=== PATIENT | female | born 1990 | race Caucasian/White ===

== ENCOUNTER 2017-09-18 14:50 | Emergency (ER) | END 2017-09-18 17:52 | disposition home or self-care (01) ==

== ENCOUNTER 2019-01-10 13:39 | Emergency (ER) | payer OTHER ==
[~2019-01-10] VITALS: Ht 160 cm; Wt 104.0 kg
[~2019-01-10 13:39] MED LIST: FLUC150T PO; NITR-58 PO
[2019-01-10 13:45] VITALS: Ht 160 cm; Wt 104.0 kg
[2019-01-10] MEDS ORDERED: ACET500C5 PO (15:57)
--- NOTE | 2019-01-10 16:03 | ERD ---
ER Documentation Chief Complaint Chief Complaint vag bleed x 20 days HPI Patient is a 28-year-old female who presents to the ER for concerns of vaginal bleeding for last 20 days. Patient states she uses 1-2 pads per day. She states the bleeding increases and then decreases in volume. Patient occasionally reports blood clot passage. Patient denies any dizziness or lightheadedness. Patient denies any fevers or chills. Patient denies any chest pain or shortness of breath. Patient occasionally does have menstrual cramps. Patient denies any urinary symptoms. Patient states she did go to [facility] and she was started on oral control however she does not recall the name of it. Patient states she does not have an SOCK IRONER. Patient admits to history of irregular periods. ROS All systems reviewed and are negative except as per history of present illness. Medications Home Meds Active Scripts Acetaminophen* (Tylophen*) 500 Mg Capsule, 1 CAP PO Q6H PRN for PAIN AND OR ELEVATED TEMP, #20 CAP Prov:SANGIAT HART PA-C 01/10/19 Fluconazole* (Diflucan*) 150 Mg Tablet, 150 MG PO ONCE, #12 TAB Prov:SANGITA HART PA-C 09/18/17 Nitrofurantoin Monohyd Macrocr* (Macrobid*) 100 Mg Capsr, 100 MG PO BID for 5 Days, #10 CAP Prov:SANGITA HART PA-C 09/18/17 Allergies Allergies: Coded Allergies: No Known Allergy (Verified Allergy, Unknown, 11/15/06) PMhx/Soc History of Surgery: Yes (Keloid removal, Tonsilectomy) Hx Neurological Disorder: Yes (VERTIGO) Hx Respiratory Disorders: Yes (Asthma) Hx Alcohol Use: No Hx Substance Use: No Hx Tobacco Use: No Smoking Status: Never smoker FmHx Family History: No diabetes Physical Exam Vitals Vital Signs Date Temp Pulse Resp B/P (MAP) Pulse Ox O2 O2 Flow FiO2 Time Delivery Rate 01/10/19 98.1 78 18 122/71 98 13:45 (88) Physical Exam GENERAL: Well-developed, well-nourished female. Appears in no acute distress. HEAD: Normocephalic, atraumatic. EYES: Pupils are equally reactive bilaterally. EOMs grossly intact. No conjunctival erythema. ENT: Moist mucous membranes. No uvula deviation. No kissing tonsils. NECK: Supple. No meningismus. Normal range of motion of the neck. LUNG: Clear to auscultation bilaterally. No rhonchi, wheezing, rales or coarse breath sounds. HEART: Regular rate and rhythm. No murmurs, rubs or gallops. ABDOMEN: No scars, ecchymosis or rashes noted. Soft, and nondistended. Mildly tender to palpation in the suprapubic region. Positive bowel sounds in all four quadrants. No rebound tenderness, no guarding. (-) McBurney's point tenderness. No CVA tenderness. EXTREMITIES: Equal pulses bilaterally. No peripheral clubbing, cyanosis or edema. No unilateral leg swelling. NEUROLOGIC: Alert and oriented. Moving all four extremities without any difficulty. Normal speech. Steady gait. SKIN: Normal color. Warm and dry. No rashes or lesions. Result Diagram: 01/10/19 1433 01/10/19 1433 Results 24 hrs Laboratory Tests Test 01/10/19 14:33 01/10/19 14:36 White Blood Count 8.8 10^3/ul Red Blood Count 6.03 10^6/ul Hemoglobin 13.4 g/dl Hematocrit 44.8 % Mean Corpuscular Volume 74.3 fl Mean Corpuscular Hemoglobin 22.2 pg Mean Corpuscular Hemoglobin Concent 29.9 g/dl Red Cell Distribution Width 15.6 % Platelet Count 334 10^3/UL Mean Platelet Volume 10.5 fl Immature Granulocytes % 0.500 % Neutrophils % 63.7 % Lymphocytes % 26.5 % Monocytes % 5.2 % Eosinophils % 3.3 % Basophils % 0.8 % Nucleated Red Blood Cells % 0.0 /100WBC Immature Granulocytes # 0.040 10^3/ul Neutrophils # 5.6 10^3/ul Lymphocytes # 2.3 10^3/ul Monocytes # 0.5 10^3/ul Eosinophils # 0.3 10^3/ul Basophils # 0.1 10^3/ul Nucleated Red Blood Cells # 0.0 10^3/ul Urine Color YELLOW Urine Clarity SLIGHTLY CLOUDY Urine pH 5.0 Urine Specific [place] 1.027 Urine Ketones NEGATIVE mg/dL Urine Nitrite NEGATIVE mg/dL Urine Bilirubin NEGATIVE mg/dL Urine Urobilinogen NEGATIVE mg/dL Urine Leukocyte Esterase NEGATIVE Lesly/ul Urine Microscopic RBC 5 /HPF Urine Microscopic WBC 3 /HPF Urine Squamous Epithelial Cells FEW /HPF Urine Mucus FEW /HPF Urine Hemoglobin 3+ mg/dL Urine Glucose NEGATIVE mg/dL Urine Total Protein NEGATIVE mg/dl Sodium Level 141 mmol/L Potassium Level 3.7 mmol/L Chloride Level 105 mmol/L Carbon Dioxide Level 26 mmol/L Anion Gap 10 Blood Urea Nitrogen 16 mg/dl Creatinine 0.78 mg/dl Est Glomerular Filtrat Rate mL/min > 60 mL/min Glucose Level 110 mg/dl Calcium Level 9.2 mg/dl Total Bilirubin 0.5 mg/dl Direct Bilirubin 0.00 mg/dl Indirect Bilirubin 0.5 mg/dl Aspartate Amino Transf (AST/SGOT) 19 IU/L Alanine Aminotransferase (ALT/SGPT) 11 IU/L Alkaline Phosphatase 76 IU/L Total Protein 8.2 g/dl Albumin 4.2 g/dl Globulin 4.00 g/dl Albumin/Globulin Ratio 1.05 POC Beta HCG, Qualitative NEGATIVE Procedures/MDM ED COURSE: The patient was stable throughout ED course. I kept the patient and/or family informed of laboratory and diagnostic imaging results throughout the ED course. DIAGNOSTIC IMAGING: Read by radiologist. Patient: TACHO STANTON : 1990 Age: 28 Sex: F MR #: [id number] DOS: 01/10/19 1421 Ordering MD: SANGITA HART PA-C Location: [facility] Room/Bed: PROCEDURE: US Pelvis Non-OB CLINICAL INDICATION: Vaginal bleeding TECHNIQUE: Images were taken during real time trans pelvic interrogation. Col or-flow and Doppler interrogation of the ovaries was performed. Endovaginal scanning was not performed. COMPARISON: None FINDINGS: Uterus: appears normal in size measuring 7.7 cm in sagittal diameter and 5.6 x 4.3 cm in cross diameter. The endometrial stripe measures 3.8 mm. Ovaries: The right ovary measures 3.0 x 2.0 x 1.6 cm and appears unremarkable. The left ovary measures 2.4 x 2.0 x 1.7 cm and appears unremarkable. Vascular flow is demonstrated in each ovary on Doppler. Adnexa: No adnexal mass is identified. Free intraperitoneal fluid: None visualized. IMPRESSION: 1. Normal sized uterus with a 3.8 mm endometrial stripe. 2. Normal ovaries with each demonstrating vascular flow on Doppler. 3. No adnexal mass or free fluid is evident. Physician Jacky Date Time Electronically viewed and signed by Physician Jacky on 01/10/2019 15:51 RH/ CC: SANGITA HART PA-C [id number] MEDICAL DECISION MAKING: This is a 28-year-old female who presents with vaginal bleeding. Vital signs were reviewed. Patient was afebrile. Patient was hemodynamically stable. Urine test was negative. CBC showed no evidence of systemic infection or severe anemia. CMP showed no severe electrolyte abnormalities, acidosis, alkalosis or renal injury. Urine test was negative. UA showed 3+ blood however no leukocytes or nitrates were noted. Pelvic ultrasound was unremarkable. See formal report above. Patient states she is already taking unknown hormonal medication thus I will defer starting patient any additional medications at this time. Patient was advised that she will need to follow-up with an SOCK IRONER. Referral information was provided. At this time, the patient's presentation is most consistent with dysmenorrhea. Differential diagnosis includes but is not limited to ectopic , threatened , spontaneous , cervical polyp, fibroid, uterine hyperplasia, malignancy, endometriosis, coagulopathy, thrombocytopenia, polycystic ovarian syndrome, tubo-ovarian abscess. PRESCRIPTIONS: Tylenol DISCHARGE: At this time, patient is stable for discharge and outpatient management. I have instructed the patient to follow-up with his/her primary care physician in 1-2 days. I have instructed the patient to promptly return to the ER for any new or worsening symptoms including increased pain, swelling, redness, warmth or fever. The patient and/or family expressed understanding of and agreement with this plan. All questions were answered. Home care instructions were provided. Disclaimer: Inadvertent spelling and grammatical errors are likely due to EHR/dictation software use and do not reflect on the overall quality of patient care. Also, please note that the electronic time recorded on this note does not necessarily reflect the actual time of the patient encounter. Departure Diagnosis: Primary Impression: Vaginal bleeding Condition: Fair Patient Instructions: Dysmenorrhea Referrals: [facility] (PCP) [facility] [place] [address] [facility] [address] [place] [address] OFFICE FAX , [facility] [address] [place] [address] [address] [facility] [address] [place] [address] [address] [facility] [address] [facility] [address] [address] [facility] [address] [place] [address] [facility] [address] [place] [address] [facility] [id number] - [place] [facility], [facility] [address] [address], [facility] [address] [facility] [address], [facility] [address] [address] [facility] [address] [place], [place] [id number] Additional Instructions: Follow-up with your SOCK IRONER for further management of your ongoing vaginal bleeding. Call your primary care doctor TOMORROW for an appointment during the next 1-2 days.See the doctor sooner or return here if your condition worsens before your appointment time. SANGITA HART PA-C Jan 10, 2019 16:03
[2019-01-10 16:07] VITALS: BP 118/69; PULSE 65; RESP 18
== END 2019-01-10 16:07 | disposition home or self-care (01) ==
LOC: FTE 13:39
DX: N93.9 Abnormal uterine and vaginal bleeding, unspecified (principal); J45.909 Unspecified asthma, uncomplicated
CPT/HCPCS: 36415; 76856; 80053; 81001; 81025; 85025; Z7502

== ENCOUNTER 2019-02-19 11:43 | Emergency (ER) | payer OTHER ==
[~2019-02-19] VITALS: Ht 160 cm; Wt 104.5 kg
[~2019-02-19 11:43] MED LIST changes: +ACET500C5 PO
[2019-02-19 11:47] VITALS: BP 109/56; PULSE 93; RESP 18; Ht 160 cm; Wt 104.5 kg
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
[2019-02-19] MEDS ORDERED: IBUP-1542 PO (13:25)
[2019-02-19] MEDS ORDERED: CYCL10TA7 PO (13:25)
== END 2019-02-19 13:31 | disposition home or self-care (01) ==
LOC: FTE 11:43
DX: S19.9XXA Unspecified injury of neck, initial encounter (principal); S39.92XA Unspecified injury of lower back, initial encounter; J45.909 Unspecified asthma, uncomplicated; V49.40XA Driver injured in collision with unspecified motor vehicles in traffic accident, initial encounter
CPT/HCPCS: 72040; 81025; Z7502